=== PATIENT | female | born 1975 | race Caucasian/White ===

== ENCOUNTER 2022-11-27 08:49 | Outpatient (CLI) | payer OTHER | END 2022-11-27 09:00 | disposition home or self-care (01) | LOC: MAMO-SONO 08:49 | PROVIDERS: ATTEND Internal Medicine Endocrinology, Diabetes & Metabolism | DX: N64.1 Fat necrosis of breast (principal); Z12.31 Encounter for screening mammogram for malignant neoplasm of breast ==

== ENCOUNTER 2023-03-27 13:36 | Outpatient (CLI) | payer OTHER | END 2023-03-27 13:43 | disposition home or self-care (01) | LOC: NUCLEAR 13:36 | PROVIDERS: ATTEND Internal Medicine Endocrinology, Diabetes & Metabolism | DX: E66.1 Drug-induced obesity (principal) ==

== ENCOUNTER 2023-08-13 08:40 | Outpatient (CLI) | payer OTHER | END 2023-08-13 08:50 | disposition home or self-care (01) | LOC: TOM 08:40 | PROVIDERS: ATTEND Internal Medicine Endocrinology, Diabetes & Metabolism | DX: R07.0 Pain in throat (principal); R06.02 Shortness of breath; R06.00 Dyspnea, unspecified; R09.81 Nasal congestion; K76.2 Central hemorrhagic necrosis of liver; Z91.018 Allergy to other foods ==

== ENCOUNTER 2024-06-29 13:45 | Outpatient (CLI) | payer OTHER | END 2024-06-29 13:57 | disposition home or self-care (01) | LOC: MAMO-SONO 13:45 | PROVIDERS: ATTEND Obstetrics & Gynecology Maternal & Fetal Medicine | DX: N63 Unspecified lump in breast (principal); Z12.31 Encounter for screening mammogram for malignant neoplasm of breast; N64.4 Mastodynia; N60.11 Diffuse cystic mastopathy of right breast; R10.2 Pelvic and perineal pain ==